=== PATIENT | female | born 1985 | race Caucasian/White ===

== ENCOUNTER 2017-09-19 10:19 | Day surgery (SDC) | payer OTHER ==
[2017-09-19] VITALS (9 sets, daily range): BP systolic 113–129; BP diastolic 48–72; PULSE 63–79; TEMP 97.8
[~2017-09-19] VITALS: Ht 170.2 cm; Wt 76.1 kg
[2017-09-19] MEDS ORDERED: NATURAL IRON65 MG PO (11:00)
[2017-09-19] MEDS ORDERED: MOTRIN 800800 MG/TAB PO (12:02)
[2017-09-19] MEDS ORDERED: PERCOCET 325 MG1 TA2 PO (12:02)
== END 2017-09-19 20:05 | disposition home or self-care (01) ==
LOC: SDCO 10:19 → JCC 14:40 → SDCO 20:05
DX: N92.1 Excessive and frequent menstruation with irregular cycle (principal); N80.0 Endometriosis of uterus; Z88.6 Allergy status to analgesic agent; Z88.1 Allergy status to other antibiotic agents; Z88.0 Allergy status to penicillin; Z98.51 Tubal ligation status
CPT/HCPCS: OP; A4314; A9284; C1713; J1100; J1580; J1885; J2405; J2550; J2704; J2710; J3010; J7120